=== PATIENT | male | born 1945 | race Caucasian/White ===

== ENCOUNTER → 2016-08-12 | Outpatient (CLI) | payer MEDICARE, BC ==
[2016-08-12 09:43] LABS: LYMPH # 1.3 K/mm3 (0.7-4.5); LYMPH % 15.1 % (10-50)
[2016-08-12 11:04] LABS: BUN 27 mg/dL (7-18)
[2016-08-12 11:06] LABS: GFR (ESTIMATED) 66 ML/MIN (>60)
[2016-08-13 08:41] LABS: PSA, Free 0.24 ng/mL; Prostate Specific Ag 0.8 ng/mL (0.0-4.0)
== END ==
LOC: LAB 09:30
PROVIDERS: Emergency Medicine
DX: E78.5 Hyperlipidemia, unspecified (principal); I10 Essential (primary) hypertension; Z79.899 Other long term (current) drug therapy

== ENCOUNTER → 2017-05-10 | Outpatient (CLI) | payer MEDICARE, BC ==
[2017-05-10 13:23] LABS: HEMOGLOBIN 13.7 g/dL (14.1-18.0); LYMPH # 1.9 K/mm3 (0.7-4.5); LYMPH % 20.1 % (10-50)
[2017-05-10 14:35] LABS: BUN 29 mg/dL (7-18)
[2017-05-10 14:39] LABS: GFR (ESTIMATED) 60 ML/MIN (>60)
== END ==
LOC: LAB 12:51
PROVIDERS: Emergency Medicine
DX: I10 Essential (primary) hypertension (principal); E78.5 Hyperlipidemia, unspecified; E66.3 Overweight